=== PATIENT | female | born 2000 | race African-American/Black ===

== ENCOUNTER 2018-02-14 18:56 | Emergency (ER) | payer MEDICAID ==
[~2018-02-14] VITALS: Ht 167.6 cm; Wt 73.0 kg
[2018-02-14] MEDS ORDERED: MORPHINE SULFATE 4 MG/ML CPJ (NOT FOR IM USE) IV STA (19:53)
[2018-02-14] MEDS ORDERED: ONDANSETRON HCL 4MG/2ML INJ IV STA (19:53)
[2018-02-14] MEDS ORDERED: SODIUM CHLORIDE 0.9% 1,000 ML IV ONE (19:53)
[2018-02-14] MEDS ORDERED: FAMOTIDINE 20MG/2ML VIAL IV STA (19:53)
[2018-02-14 21:54] LABS: HEMATOCRIT. 42.7 % (36.0-48.0); HEMOGLOBIN. 14.1 g/dL (12.0-16.0); MEAN CORPUSCULAR VOLUME 81.9 fL (81.0-99.0); MEAN PLATELET VOLUME 7.2 fl (7.4-10.4); PLATELET 280 x1000/uL (130-400); RED BLOOD CELL COUNT 5.22 mill/uL (4.2-5.4); RED CELL DISTRIBUTION WIDTH 14.4 % (11.6-14.6)
[2018-02-14 22:00] LABS: INR 1.1; PROTHROMBIN TIME 10.7 sec (9.1-11.1)
[2018-02-14 22:01] LABS: CHLORIDE 107 mEq/L (98-107)
[2018-02-14 22:16] LABS: CLARITY URINE TURBID (CLEAR); COLOR URINE DARK YELLOW (YELLOW); KETONES URINE 1+ (NEGATIVE); LEUKOCYTE ESTERASE URINE 2+ (NEGATIVE); NITRITE URINE POSITIVE (NEGATIVE); OCCULT BLOOD URINE TRACE (NEGATIVE); PROTEIN URINE 2+ (NEGATIVE)
[2018-02-14] MEDS ORDERED: ONDANSETRON HCL 4MG/2ML INJ IV ONE (22:30)
[2018-02-14 22:39] LABS: PLATELET ESTIMATE NORMAL
[2018-02-14] MEDS ORDERED: IOHEXOL-300 100 ML BOTTLE ONE (23:27)
[2018-02-15 03:12] LABS: HCG SCREEN NEGATIVE
[2018-02-15 03:19] VITALS: BP 113/65
== END 2018-02-15 03:32 | disposition home or self-care (01) ==
LOC: ER 18:58
DX: N39.0 Urinary tract infection, site not specified (principal); R11.2 Nausea with vomiting, unspecified; R10.11 Right upper quadrant pain; R19.7 Diarrhea, unspecified; J45.909 Unspecified asthma, uncomplicated; R00.0 Tachycardia, unspecified; F12.10 Cannabis abuse, uncomplicated; Z98.890 Other specified postprocedural states
CPT/HCPCS: 36415; 74177; 76705; 80053; 81003; 81025; 83690; 84703; 85025; 85610; 87086; 96361; 96374; 96375; 96376; 99285; J2270; J2405; J3490; J7030; Q9967

== ENCOUNTER 2019-05-06 12:57 | Observation (INO) | payer MEDICAID ==
[~2019-05-06] VITALS: Ht 167.6 cm; Wt 75.3 kg
[2019-05-06] MEDS ORDERED: PREN1TAB78 MT (13:28)
[2019-05-06] MEDS ORDERED: FERR325T6 MT (13:28)
== END 2019-05-06 15:00 | disposition home or self-care (01) ==
LOC: 8 EST LDRP 12:57
PROVIDERS: ADMIT Obstetrics & Gynecology; ATTEND Obstetrics & Gynecology
DX: O36.8120 Decreased fetal movements, second trimester, not applicable or unspecified (principal); Z3A.28 28 weeks gestation of pregnancy
CPT/HCPCS: 76805; 76818; 99281; G0378

== ENCOUNTER 2019-07-22 20:11 | Observation (INO) | payer MEDICAID, OTHER ==
[~2019-07-22] VITALS: Ht 170.2 cm; Wt 84.8 kg
[~2019-07-22 20:11] MED LIST: FERR325T6 MT; PREN1TAB78 MT
[2019-07-22] MEDS ORDERED: ALBUTEROL (0.5%) 2.5MG/0.5ML NEB HHN NR (22:45)
[2019-07-22] MEDS ORDERED: ALBUTEROL (0.083%) 2.5MG/3ML NEB HHN NR (22:49)
== END 2019-07-22 23:30 | disposition home or self-care (01) ==
LOC: 8 EST LDRP 20:11 → INTOOBSV 20:11
PROVIDERS: ADMIT Obstetrics & Gynecology; ATTEND Obstetrics & Gynecology
DX: O62.9 Abnormality of forces of labor, unspecified (principal); O26.893 Other specified pregnancy related conditions, third trimester; R10.9 Unspecified abdominal pain; N89.8 Other specified noninflammatory disorders of vagina; R07.89 Other chest pain; Z3A.39 39 weeks gestation of pregnancy; Z98.891 History of uterine scar from previous surgery
CPT/HCPCS: 94640; 99281; G0378

== ENCOUNTER 2021-03-11 16:32 | Emergency (ER) | payer SELFPAY ==
[~2021-03-11] VITALS: Ht 172.7 cm; Wt 65.0 kg
[2021-03-11] MEDS ORDERED: ACETAMINOPHEN 325MG TABLET PO ONE (17:45)
[2021-03-11 18:12] VITALS: BP 125/80
[2021-03-11] MEDS ORDERED: IBUPROFEN 600MG TABLET PO ONE (18:15)
== END 2021-03-11 18:13 | disposition home or self-care (01) ==
LOC: ER 16:32
DX: R51.9 Headache, unspecified (principal)
CPT/HCPCS: 81025; 99283

== ENCOUNTER 2021-04-02 10:52 | Emergency (ER) | payer MEDICAID ==
[~2021-04-02] VITALS: Ht 170.2 cm; Wt 68.0 kg
[2021-04-02] MEDS ORDERED: ONDANSETRON 4MG ODT PO STA (11:10)
[2021-04-02 18:00] LABS: CHLORIDE 104 mEq/L (98-107)
[2021-04-02 18:05] LABS: BASOPHILS % 0.2 % (0.0-2.0); EOSINOPHILS % 1.1 % (0.0-5.0); HEMATOCRIT. 38.9 % (36.0-48.0); HEMOGLOBIN. 13.1 g/dL (12.0-16.0); LYMPHOCYTES % 13.3 % (20.0-50.0); MEAN CORPUSCULAR HEMOGLOBIN 28.6 pg (28.0-32.0); MEAN CORPUSCULAR VOLUME 85.1 fL (81.0-99.0); MONOCYTES % 5.3 % (2.0-8.0); NEUTROPHILS % 80.1 % (40.0-76.0); PLATELET 261 x1000/uL (130-400); RED BLOOD CELL COUNT 4.58 mill/uL (4.2-5.4); RED CELL DISTRIBUTION WIDTH 13.2 % (11.6-14.6)
[2021-04-02 18:28] LABS: CLARITY URINE CLOUDY (CLEAR); COLOR URINE YELLOW (YELLOW); KETONES URINE 1+ (NEGATIVE); LEUKOCYTE ESTERASE URINE 1+ (NEGATIVE); NITRITE URINE POSITIVE (NEGATIVE); OCCULT BLOOD URINE NEGATIVE (NEGATIVE); PROTEIN URINE TRACE (NEGATIVE); SPECIFIC GRAVITY URINE 1.025 (1.005-1.030)
[2021-04-02 19:25] LABS: HCG SCREEN POSITIVE
[2021-04-02] MEDS ORDERED: PNV1TABL76 PO (21:55)
[2021-04-02 22:55] VITALS: BP 124/88
== END 2021-04-02 22:56 | disposition home or self-care (01) ==
LOC: ER 10:52
DX: N39.0 Urinary tract infection, site not specified (principal); F12.10 Cannabis abuse, uncomplicated; Z98.890 Other specified postprocedural states
CPT/HCPCS: 36415; 76801; 80053; 81003; 81025; 84702; 84703; 85025; 99284

== ENCOUNTER 2021-04-07 12:05 | Emergency (ER) | payer MEDICAID ==
[~2021-04-07] VITALS: Ht 157.5 cm; Wt 75.0 kg
[~2021-04-07 12:05] MED LIST changes: +PNV1TABL76 PO
[2021-04-07 12:39] VITALS: BP 166/49
[2021-04-07] MEDS ORDERED: ACETAMINOPHEN 325MG TABLET PO ONE ×2 (13:30→19:15)
[2021-04-07] MEDS ORDERED: ONDANSETRON 4MG ODT PO ONE ×2 (13:30→19:15)
[2021-04-07 15:39] LABS: BASOPHILS % 0.3 % (0.0-2.0); EOSINOPHILS % 1.1 % (0.0-5.0); HEMATOCRIT. 40.4 % (36.0-48.0); HEMOGLOBIN. 13.3 g/dL (12.0-16.0); LYMPHOCYTES % 27.2 % (20.0-50.0); MEAN CORPUSCULAR HEMOGLOBIN 27.3 pg (28.0-32.0); MEAN CORPUSCULAR VOLUME 82.6 fL (81.0-99.0); MEAN PLATELET VOLUME 6.5 fl (7.4-10.4); MONOCYTES % 5.2 % (2.0-8.0); NEUTROPHILS % 66.2 % (40.0-76.0); PLATELET 310 x1000/uL (130-400); RED BLOOD CELL COUNT 4.89 mill/uL (4.2-5.4); RED CELL DISTRIBUTION WIDTH 12.8 % (11.6-14.6)
[2021-04-07 15:47] LABS: CHLORIDE 105 mEq/L (98-107)
[2021-04-07 15:48] LABS: HCG SCREEN POSITIVE
[2021-04-07] MEDS ORDERED: ONDA4TAB5 MT (19:34)
== END 2021-04-07 19:45 | disposition home or self-care (01) ==
LOC: ER 12:05
DX: O26.891 Other specified pregnancy related conditions, first trimester (principal); O21.8 Other vomiting complicating pregnancy; Z3A.01 Less than 8 weeks gestation of pregnancy; F12.10 Cannabis abuse, uncomplicated; G43.909 Migraine, unspecified, not intractable, without status migrainosus; Z20.822 Contact with and (suspected) exposure to COVID-19
CPT/HCPCS: 36415; 71045; 76700; 76801; 76817; 80053; 83690; 84703; 85025; 86850; 86900; 86901; 99285; C9803; Q0162; U0003; U0005

== ENCOUNTER 2022-11-19 00:12 | Emergency (ER) | payer MEDICAID ==
[~2022-11-19] VITALS: Ht 170.2 cm; Wt 68.0 kg
[~2022-11-19 00:12] MED LIST changes: +ONDA4TAB5 MT
[2022-11-19 00:36] VITALS: TEMP 98.9; O2SAT 100
[2022-11-19] MEDS ORDERED: METOCLOPRAMIDE HCL 10MG TABLET PO ONE (03:30)
[2022-11-19] MEDS ORDERED: ACETAMINOPHEN 325MG TABLET PO ONE (03:30)
[2022-11-19] MEDS ORDERED: DIPHENHYDRAMINE 25MG CAPSULE PO ONE (03:30)
[2022-11-19] MEDS ORDERED: ACET-2708 MT (03:50)
[2022-11-19] MEDS ORDERED: METO-293 MT (03:50)
[2022-11-19 04:45] VITALS: BP 126/68; PULSE 72; RESP 18
[2022-11-19] MEDS ORDERED: DEXAMETHASONE 10 MG/ML VIAL IM ONE (04:45)
[2022-11-19] MEDS ORDERED: KETOROLAC 60MG/2ML VIAL IM ONE (04:45)
== END 2022-11-19 05:07 | disposition home or self-care (01) ==
LOC: ER 00:12
DX: G43.909 Migraine, unspecified, not intractable, without status migrainosus (principal); F12.10 Cannabis abuse, uncomplicated; Z00.00 Encounter for general adult medical examination without abnormal findings; Z98.890 Other specified postprocedural states; Z79.899 Other long term (current) drug therapy
CPT/HCPCS: 81025; 96372; 99284; Q0163; J8597; J1100; J1885; Z7610

== ENCOUNTER 2023-06-14 18:34 | Emergency (ER) | payer MEDICAID ==
[~2023-06-14] VITALS: Ht 170.2 cm; Wt 68.0 kg
[~2023-06-14 18:34] MED LIST changes: +ACET-2708 MT; +METO-293 MT
[2023-06-14 18:47] VITALS: O2SAT 99
[2023-06-14] MEDS: DIPHENHYDRAMINE 25MG CAPSULE PO ONE (20:00)
[2023-06-14 21:03] LABS: BASOPHILS % 0.5 % (0.0-2.0); EOSINOPHILS % 3.2 % (0.0-5.0); HEMATOCRIT. 36.7 % (36.0-48.0); HEMOGLOBIN. 12.2 g/dL (12.0-16.0); LYMPHOCYTES % 40.8 % (20.0-50.0); MEAN CORPUSCULAR HEMOGLOBIN 28.4 pg (28.0-32.0); MEAN CORPUSCULAR HGB CONC 33.3 g/dL (31.0-37.0); MEAN CORPUSCULAR VOLUME 85.2 fL (81.0-99.0); MEAN PLATELET VOLUME 7.2 fl (7.4-10.4); MONOCYTES % 6.1 % (2.0-8.0); NEUTROPHILS % 49.4 % (40.0-76.0); PLATELET 285 x1000/uL (130-400); RED BLOOD CELL COUNT 4.31 mill/uL (4.2-5.4); RED CELL DISTRIBUTION WIDTH 13.9 % (11.6-14.6); WHITE BLOOD COUNT 6.5 x1000/uL (4.5-11.0)
[2023-06-14 21:10] LABS: HCG SCREEN NEGATIVE
[2023-06-14 21:16] LABS: ALANINE AMINOTRANSFERASE 10 IU/L (10-49); ALBUMIN 4.3 g/dL (3.2-4.8); ASPARTATE AMINOTRANSFERASE 17 IU/L (<34); BILIRUBIN TOTAL 0.3 mg/dL (0.1-1.0); CALCIUM 8.6 mg/dL (8.7-10.4); CARBON DIOXIDE 27 mEq/L (21-32); CHLORIDE 106 mEq/L (98-107); CREATININE 0.7 mg/dL (0.6-1.0); GLUCOSE 82 mg/dL (70-105); POTASSIUM 3.6 mEq/L (3.5-5.1); PROTEIN TOTAL 7.2 g/dL (6.0-8.3); SODIUM 138 mEq/L (136-145); UREA NITROGEN BLOOD 7 mg/dL (9-23)
[2023-06-14] MEDS ORDERED: HYDR-459 MT (21:29)
[2023-06-14] MEDS ORDERED: P50 MT (21:29)
[2023-06-14] MEDS: PREDNISONE 20MG TABLET PO ONE (21:30)
[2023-06-14 21:34] VITALS: BP 148/92; PULSE 69; RESP 16; TEMP 98.6
== END 2023-06-14 21:46 | disposition home or self-care (01) ==
LOC: ER 18:34
DX: R21 Rash and other nonspecific skin eruption (principal); G43.909 Migraine, unspecified, not intractable, without status migrainosus; F12.10 Cannabis abuse, uncomplicated; Z98.890 Other specified postprocedural states; Z79.899 Other long term (current) drug therapy
CPT/HCPCS: 99283; 80053; 84703; 85025; 36415; Q0163; J7512

== ENCOUNTER 2023-06-18 11:33 | Emergency (ER) | payer MEDICAID ==
[~2023-06-18] VITALS: Ht 167.6 cm; Wt 72.0 kg
[~2023-06-18 11:33] MED LIST changes: +HYDR-459 MT; +P50 MT
[2023-06-18 11:37] VITALS: BP 114/80; PULSE 83; RESP 20; TEMP 98.4; O2SAT 99
[2023-06-18] MEDS ORDERED: HYDR-459 MT (13:19)
[2023-06-18] MEDS ORDERED: HYDR99LO MT (13:19)
== END 2023-06-18 14:32 | disposition home or self-care (01) ==
LOC: ER 11:33
DX: L20.9 Atopic dermatitis, unspecified (principal); F12.90 Cannabis use, unspecified, uncomplicated; G43.909 Migraine, unspecified, not intractable, without status migrainosus; Z98.890 Other specified postprocedural states
CPT/HCPCS: 99283

== ENCOUNTER 2023-08-07 00:09 | Emergency (ER) | payer MEDICAID ==
[~2023-08-07] VITALS: Ht 170.2 cm; Wt 68.0 kg
[~2023-08-07 00:09] MED LIST changes: +HYDR99LO MT
[2023-08-07 00:19] VITALS: BP 124/87; PULSE 78; RESP 16; TEMP 98.6; O2SAT 100
[2023-08-07 02:32] LABS: CLARITY URINE CLOUDY (CLEAR); COLOR URINE YELLOW (YELLOW); GLUCOSE URINE NEGATIVE (NEGATIVE); KETONES URINE NEGATIVE (NEGATIVE); LEUKOCYTE ESTERASE URINE 2+ (NEGATIVE); NITRITE URINE NEGATIVE (NEGATIVE); OCCULT BLOOD URINE NEGATIVE (NEGATIVE); PH URINE 5.5 (4.5-8.0); PROTEIN URINE TRACE (NEGATIVE); UROBILINOGEN URINE 0.2 E.U./dL (0.2-1.0)
[2023-08-07 03:31] LABS: SQUAMOUS EPITHELIAL CELL URINE 1+ /lpf (RARE/1+)
[2023-08-07 03:32] LABS: WBC URINE 25-50 /hpf (0-2)
[2023-08-07 03:33] LABS: RBC URINE 0-2 /hpf (0-2)
[2023-08-07 03:34] LABS: BACTERIA URINE TRACE
== END 2023-08-07 03:09 | disposition home or self-care (01) ==
LOC: ER 00:34
DX: L85.8 Other specified epidermal thickening (principal); G43.909 Migraine, unspecified, not intractable, without status migrainosus; F12.90 Cannabis use, unspecified, uncomplicated; Z98.890 Other specified postprocedural states
CPT/HCPCS: 81003; 81025; 87077; 87186; 99283

== ENCOUNTER 2024-08-09 18:49 | Emergency (ER) | payer MEDICAID ==
[~2024-08-09] VITALS: Ht 170.2 cm; Wt 82.0 kg
[2024-08-09 18:51] VITALS: PULSE 106; RESP 16; O2SAT 99
[2024-08-09 18:55] VITALS: BP 117/72; TEMP 36.8; O2SAT 99
[2024-08-09 19:46] LABS: CLARITY URINE TURBID (CLEAR); COLOR URINE ORANGE (YELLOW); GLUCOSE URINE NEGATIVE (NEGATIVE); KETONES URINE NEGATIVE (NEGATIVE); LEUKOCYTE ESTERASE URINE 1+ (NEGATIVE); NITRITE URINE POSITIVE (NEGATIVE); OCCULT BLOOD URINE 3+ (NEGATIVE); PH URINE 5.5 (4.5-8.0); PROTEIN URINE 3+ (NEGATIVE)
[2024-08-09 19:50] LABS: BACTERIA URINE 4+; RBC URINE TNTC /hpf (0-2); SQUAMOUS EPITHELIAL CELL URINE 1+ /lpf (RARE/1+); UCG KIT LOT# 920134; UCG SCREEN NEGATIVE
[2024-08-09 20:02] LABS: BASOPHILS % 0.4 % (0.0-2.0); EOSINOPHILS % 3.4 % (0.0-5.0); HEMOGLOBIN. 12.2 g/dL (12.0-16.0); MEAN CORPUSCULAR HEMOGLOBIN 27.2 pg (28.0-32.0); MEAN CORPUSCULAR HGB CONC 32.9 g/dL (31.0-37.0); MEAN CORPUSCULAR VOLUME 82.5 fL (81.0-99.0); MEAN PLATELET VOLUME 6.8 fl (7.4-10.4); MONOCYTES % 6.5 % (2.0-8.0); NEUTROPHILS % 57.7 % (40.0-76.0); PLATELET 392 x1000/uL (130-400); RED BLOOD CELL COUNT 4.48 mill/uL (4.2-5.4); RED CELL DISTRIBUTION WIDTH 14.9 % (11.6-14.6); WHITE BLOOD COUNT 6.1 x1000/uL (4.5-11.0)
[2024-08-09 20:08] LABS: CHLORIDE 107 mEq/L (98-107); POTASSIUM 3.7 mEq/L (3.5-5.1); SODIUM 141 mEq/L (136-145)
[2024-08-09 20:09] LABS: CARBON DIOXIDE 27 mEq/L (21-32)
[2024-08-09 20:10] LABS: CALCIUM 8.7 mg/dL (8.7-10.4)
[2024-08-09 20:14] LABS: CREATININE 0.8 mg/dL (0.6-1.0)
[2024-08-09 20:15] LABS: GLUCOSE 98 mg/dL (70-105); UREA NITROGEN BLOOD 9 mg/dL (9-23)
[2024-08-09 20:16] LABS: ALANINE AMINOTRANSFERASE 35 IU/L (10-49); ASPARTATE AMINOTRANSFERASE 26 IU/L (<34)
[2024-08-09 20:17] LABS: BILIRUBIN DIRECT < 0.1 mg/dL (<=3.0); BILIRUBIN TOTAL 0.3 mg/dL (0.1-1.0)
[2024-08-09] MEDS ORDERED: CEFP200T13 MT (20:26)
== END 2024-08-09 20:37 | disposition home or self-care (01) ==
LOC: ER 18:49
DX: N39.0 Urinary tract infection, site not specified (principal); G43.809 Other migraine, not intractable, without status migrainosus; Z55.6 Problems related to health literacy; Z79.52 Long term (current) use of systemic steroids
CPT/HCPCS: 36415; 80048; 80076; 81003; 81025; 85025; 86850; 86900; 99283